=== PATIENT | male | born 1945 | race Caucasian/White ===

== ENCOUNTER 2022-05-28 15:22 | Inpatient (IN) | payer MEDICARE, OTHER ==
[~2022-05-28] VITALS: Ht 165.1 cm; Wt 76.7 kg
--- NOTE | 2022-05-28 15:35 | NUR ---
[id number] FROM HOME FOR RIGHT LOWER LEG AND HEADACHE 02/20 X1 DAY. NOTED TEMP 100.5F. THE PATIENT IS ALERT AND ORIENTED X3. IN ROOM AIR AND DENIES SOB. RESPIRATION REGULAR AND UNLABORED. DENIES SOB. THE PATIENT IS ATTACHED TO THE MONITOR. WILL CONTINUE TO MONITOR THE PATIENT.
[2022-05-28] MEDS ORDERED: IV NS 0.9% 1,000 ML BAG IV ONE (16:00)
[2022-05-28] MEDS ORDERED: ACETAMINOPHEN ES 500 MG TABLET PO ONE (16:00)
[2022-05-28] MEDS ORDERED: DAPA10TA PO (16:11)
[2022-05-28] MEDS ORDERED: LOSA50TA39 PO (16:11)
[2022-05-28] MEDS ORDERED: METF-442 PO (16:11)
[2022-05-28] MEDS ORDERED: DUTA0.5C PO (16:11)
[2022-05-28] MEDS ORDERED: CLON0.1T PO (16:11)
[2022-05-28] MEDS ORDERED: HYDR25TA4 PO (16:11)
[2022-05-28] MEDS ORDERED: GLIP10TA21 PO (16:11)
[2022-05-28] MEDS ORDERED: CILO100T PO (16:11)
[2022-05-28] MEDS ORDERED: DONE10TA44 PO (16:11)
[2022-05-28] MEDS ORDERED: CETI-108 PO (16:11)
[2022-05-28] MEDS ORDERED: CARV6.25 PO (16:11)
[2022-05-28] MEDS ORDERED: FLUT1BLS6 IH (16:12)
[2022-05-28] MEDS ORDERED: MAGN400T8 PO (16:12)
[2022-05-28] MEDS ORDERED: CHOL500052 PO (16:12)
[2022-05-28] MEDS ORDERED: ROSU40TA PO (16:12)
[2022-05-28] MEDS ORDERED: PRED5DRO17 EACHEYE (16:12)
[2022-05-28] MEDS ORDERED: TAMS-12 PO (16:12)
[2022-05-28] MEDS ORDERED: OMEP1PAC5 PO (16:12)
[2022-05-28] MEDS ORDERED: NIFE-35 PO (16:12)
[2022-05-28] MEDS ORDERED: ASCO500C17 PO (16:12)
[2022-05-28] MEDS ORDERED: MYRBETRIQ PO (16:12)
[2022-05-28] MEDS ORDERED: ALBU18HF2 IH (16:12)
--- NOTE | 2022-05-28 16:21 | NUR ---
MOVE SHEET SUBMITTED
--- NOTE | 2022-05-28 16:28 | NUR ---
COVID ANTIGEN SWAB DONE AND SENT TO THE LAB
--- NOTE | 2022-05-28 16:33 | NUR ---
URINE COLLECTED AND SENT TO THE LAB
[2022-05-28] MEDS ORDERED: ACETAMINOPHEN ES 500 MG TABLET ONE (16:34)
[2022-05-28 16:55] LABS: BILIRUBIN,URINE NEGATIVE (NEGATIVE); COLOR,URINE YELLOW (YELLOW); LEUKOCYTE ESTERASE ,URINE NEGATIVE (NEGATIVE); NITRITE, URINE NEGATIVE (NEGATIVE); PH,URINE 5.5 (5.0-8.0); PROTEIN,URINE NEGATIVE (NEGATIVE); UGLUCOSE >=1000 mg/dL (NEGATIVE); UROBILINOGEN,URINE 0.2 EU/dL (0.2)
[2022-05-28 16:58] LABS: BACTERIA,URINE Rare /HPF (None Seen); SQUAMOUS EPITHELIAL CELL,UR Few /HPF (None Seen); WBC,URINE 0-2 /HPF (0-3)
[2022-05-28 17:20] VITALS: BP 131/75
[2022-05-28 17:23] LABS: BASOPHILS % (AUTO) 0.3 % (0.0-2.0); EOSINOPHILS % (AUTO) 0.4 % (0.0-6.0); HEMATOCRIT 42 % (39-51); HEMOGLOBIN 14.1 g/dL (13.5-17.5); LYMPHOCYTES # (AUTO) 0.7 K/uL (0.8-4.8); MEAN CORPUSCULAR HGB CONC 34 g/dl (31.0-36.0); MEAN CORPUSCULAR VOLUME 81 fL (80-96); MONOCYTES # (AUTO) 0.7 K/uL (0.1-1.30); MONOCYTES % (AUTO) 8.8 % (2.0-12.0); NEUTROPHILS # (AUTO) 6.7 K/uL (1.8-8.9); NEUTROPHILS % (AUTO) 82.5 % (43.0-81.0); PLATELET COUNT (AUTO) 201 K/uL (150-450); RED BLOOD CELL COUNT(AUTO) 5.15 MIL/uL (4.5-6.0); WHITE BLOOD COUNT (AUTO) 8.1 K/uL (4.3-11.0)
[2022-05-28 17:31] LABS: CALCIUM, SERUM 8.5 mg/dL (8.5-10.1); CARBON DIOXIDE 26 mmol/L (21-32); CHLORIDE 103 mmol/L (98-107); CREATININE 1.1 mg/dL (0.6-1.3); GLUCOSE 189 mg/dL (74-106); POTASSIUM 3.8 mmol/L (3.5-5.1); SODIUM SERUM 136 mmol/L (136-145); UREA NITROGEN, BLOOD 19 mg/dL (7-18)
[2022-05-28 17:37] LABS: ALANINE AMINOTRANSFERASE 21 U/L (12-78); ALBUMIN 3.7 g/dL (3.4-5.0); ALKALINE PHOSPHATASE 82 U/L (46-116); ASPARTATE AMINOTRANSFERASE 15 U/L (15-37); BILIRUBIN,DIRECT 0.1 mg/dL (0.0-0.2); BILIRUBIN,TOTAL 0.4 mg/dL (0.2-1.0); TOTAL PROTEIN, SERUM 7.1 g/dL (6.4-8.2)
--- NOTE | 2022-05-28 19:05 | NUR ---
[facility] [phone]
--- NOTE | 2022-05-28 19:47 | NUR ---
room 110
[2022-05-28] MEDS ORDERED: INSULIN REGULAR, HUMAN 100 UNIT/ML 3 ML VIAL SQ PRN (20:00)
[2022-05-28] MEDS ORDERED: IV NS 0.9% 1,000 ML IV PRN (20:00)
[2022-05-28] MEDS ORDERED: MAGNESIUM HYDROXIDE 30 ML UDC PO PRN (20:00)
[2022-05-28] MEDS ORDERED: ALBUTEROL SULFATE 8 GM HFA.AER.AD IH SCH (20:00)
[2022-05-28] MEDS ORDERED: AZITHROMYCIN 250 MG TABLET PO SCH (20:00)
[2022-05-28] MEDS ORDERED: ONDANSETRON HCL/PF 4 MG/2 ML VIAL IVP PRN (20:00)
[2022-05-28] MEDS ORDERED: DEXTROSE 50%-WATER 50 ML DISP.SYRIN IV PRN (20:00)
[2022-05-28] MEDS ORDERED: ZOLPIDEM TARTRATE 5 MG TABLET PO PRN (20:00)
[2022-05-28] MEDS ORDERED: MAG HYDROX/AL HYDROX/SIMETH 30 ML UDC PO PRN (20:00)
[2022-05-28] MEDS ORDERED: Z GUARD REMEDY 4 OZ OINT TP PRN (20:00)
[2022-05-28] MEDS ORDERED: ACETAMINOPHEN 325 MG TABLET PO PRN (20:00)
--- NOTE | 2022-05-28 20:20 | NUR ---
Patient does not wish to proceed with medical care recommended by Dr. Almonte. Patient given information related to possible complications, up to and including , which could occur as a result of leaving the hospital at this time. Patient verbalizes understanding of risks involved due to leaving against medical advice. Patient has signed AMA form.
[2022-05-28] MEDS ORDERED: CARVEDILOL 6.25 MG TABLET PO SCH (21:00)
[2022-05-28] MEDS ORDERED: CILOSTAZOL 100 MG TABLET PO SCH (21:00)
[2022-05-28] MEDS ORDERED: ATORVASTATIN 40 MG TABLET PO SCH (22:00)
[2022-05-28] MEDS ORDERED: BLOOD SUGAR DIAGNOSTIC 1 EACH STRIP IN SCH (22:00)
[2022-05-28] MEDS ORDERED: TAMSULOSIN 0.4 MG CAP.SR.24H PO SCH (22:00)
[2022-05-29] MEDS ORDERED: PANTOPRAZOLE 40 MG TABLET.DR PO SCH (07:30)
[2022-05-29] MEDS ORDERED: glipiZIDE XL 10 MG TAB.OSM.24 PO SCH (08:00)
[2022-05-29] MEDS ORDERED: METFORMIN 500 MG TABLET PO SCH (08:00)
[2022-05-29] MEDS ORDERED: ASCORBIC ACID 500 MG TABLET PO SCH (09:00)
[2022-05-29] MEDS ORDERED: LOSARTAN POTASSIUM 50 MG TABLET PO SCH (09:00)
[2022-05-29] MEDS ORDERED: NIFEdipine XL (30MG) 30 MG TAB PO SCH (09:00)
[2022-05-29] MEDS ORDERED: HYDROCHLOROTHIAZIDE 25 MG TABLET PO SCH (09:00)
[2022-05-29] MEDS ORDERED: CLONIDINE HCL 0.1 MG TABLET PO SCH (09:00)
[2022-05-29] MEDS ORDERED: MAGNESIUM OXIDE 400 MG TABLET PO SCH (09:00)
[2022-05-29] MEDS ORDERED: prednisoLONE ACETATE 1% SUSP 5 ML BOTTLE EACHEYE SCH (09:00)
[2022-05-29] MEDS ORDERED: cetrizine 10 MG TABLET PO SCH (09:00)
[2022-05-29] MEDS ORDERED: DUTASTERIDE (0.5 MG) 0.5 MG CAPSULE PO SCH (09:00)
== END 2022-05-28 20:41 | disposition left against medical advice (07) | DRG 179 ==
LOC: ER 16:30 → TELE1 19:29
PROVIDERS: ADMIT Nurse Practitioner Acute Care; ATTEND Nurse Practitioner Acute Care
DX: U07.1 COVID-19 (principal); I10 Essential (primary) hypertension; I25.2 Old myocardial infarction; E11.9 Type 2 diabetes mellitus without complications; Z79.51 Long term (current) use of inhaled steroids; Z79.84 Long term (current) use of oral hypoglycemic drugs; Z79.899 Other long term (current) drug therapy; Z79.02 Long term (current) use of antithrombotics/antiplatelets; R00.0 Tachycardia, unspecified
CPT/HCPCS: 36415; 71045-TC; 80048-TC; 80076-TC; 81001; 83605-TC; 84484-TC; 85025-TC; 85730-TC; 87040-TC; 87086-TC; C9803; G0378; J1815; J7030